=== PATIENT | female | born 1960 | race Caucasian/White ===

== ENCOUNTER 2018-10-15 13:49 | Emergency (ER) | payer OTHER ==
[~2018-10-15 13:49] MED LIST: CALC-852 PO; ESC10 PO; ESOM20CA31 PO; ESTR-68 PO; ESTR0.5T18 PO; FLU220R INH; LAMO200T3 PO; LOR5 PO; NORE1TAB96 PO; VENL100T21 PO
[2018-10-15] MEDS ORDERED: LEVO75TA73 PO (13:57)
[2018-10-15] MEDS ORDERED: VENL150C61 PO (13:57)
--- NOTE | 2018-10-15 13:58 | ER Report ---
History and Physical Time Seen By MD: 13:54 HPI/ROS CHIEF COMPLAINT: Fever, body aches HISTORY OF PRESENT ILLNESS: 58-year-old female patient presents to emergency room with complaint of fever and bodyaches. Patient states that she's not been f eeling well since last night. She states that she started not feeling well out of the blue. Patient states she does have significant headache. She states that she's not had any cough, nausea, vomiting or diarrhea. Patient states the headache is horrible and radius down into the right jaw. She states she is not taking any medication for this. She states she was unable to sleep last night because the pain was so significant. She did go to urgent care today. They felt that she was better served being evaluated here to emergency room. They did give her a shot of Toradol for the pain. Patient states she's feeling significantly better with Toradol. Patient states that she has been riding a lot of horses, and has been exposed. Typically she does wear his belt when she is out. REVIEW OF SYSTEMS: Respiratory: No cough, no dyspnea. Cardiovascular: No chest pain, no palpitations. Gastrointestinal: No vomiting, no abdominal pain. Musculoskeletal: No back pain. Allergies: Coded Allergies: No Known Drug Allergies (Unverified , 10/15/18) Home Meds Active Scripts Ketorolac Tromethamine (KETOROLAC TROMETHAMINE) 10 Mg Tab, 10 MG PO Q6H, #20 TAB Prov:LLUVIA AGEE [facility] 10/15/18 Amoxicillin/Pot Clav 875-125 Mg Tab (AUGMENTIN 875-125 TABLET) 1 Each Tablet, 1 TAB PO Q12H, #14 TAB Prov:LLUVIA AGEE [facility] 10/15/18 Reported Medications Levothyroxine Sodium (LEVOTHYROXINE SODIUM) 75 Mcg Tablet, 75 MCG PO QDAY, TAB 10/15/18 Venlafaxine Hcl (EFFEXOR XR) 150 Mg Cap.er.24h, 150 MG PO QDAY 10/15/18 Estradiol/Norethindrone Acet (ESTRADIOL-NORETH 1-0.5 MG TAB) 1 Each Tablet, 1 EACH PO QDAY 08/04/16 Discontinued Reported Medications Lamotrigine (LAMOTRIGINE) 200 Mg Tab.er.24, 200 MG PO QDAY 08/04/16 Fluticasone Propionate (Flovent Hfa 220 Mcg) 1 Puff Aero, 1 PUFF INH QHS, 0 Refills 1 PUFF 04/18/11 Past Medical/Surgical History Patient has a past medical history of asthma, left hand fracture, hypothyroidi sm, alcohol use, depression. Patient has surgical history of orthopedic surgery for her hand. Patient has a family medical history of cancer. Reviewed Nurses Notes: Yes Hx Smoking: No Smoking Status: Never Smoker Hx Alcohol Use: Yes Constitutional Vital Sign - Last 24 Hours 10/15/18 10/15/18 10/15/18 10/15/18 13:55 14:00 14:30 15:00 Temp 101.3 Pulse 62 61 58 71 Resp 20 B/P (MAP) 144/82 141/85 (103) 138/74 (95) 141/94 (110) Pulse Ox 92 96 94 94 O2 Delivery Room Air 10/15/18 10/15/18 15:30 16:03 Temp 100.0 Pulse 65 B/P (MAP) 128/68 (88) Pulse Ox 93 Physical Exam General Appearance: The patient is alert, has no immediate need for airway protection and no current signs of toxicity. ENT: Patient did have tenderness to frontal and right maxillary sinus. Respiratory: Chest is non tender, lungs are clear to auscultation. Cardiac: regular rate and rhythm Gastrointestinal: Abdomen is soft and non tender, no masses, bowel sounds normal. Musculoskeletal: Neck: Neck is supple and non tender. Extremities have full range of motion and are non tender. Skin: No rashes or lesions. DIFFERENTIAL DIAGNOSIS: After history and physical exam differential diagnosis was considered for fever in adults including but not limited to pneumonia, urinary tract infection, viral syndrome, and influenza. Medical Decision Making Data Points Result Diagram: 10/15/18 1403 10/15/18 1403 Laboratory Hematology Test 10/15/18 14:03 White Blood Count 13.2 k/uL (4.5-11.0) H Red Blood Count 4.33 M/uL (4.17-5.56) Hemoglobin 14.4 g/dL (12.0-16.0) Hematocrit 40.0 % (34.0-47.0) Mean Corpuscular Volume 92.4 fL (80.0-96.0) Mean Corpuscular Hemoglobin 33.1 pg (26.0-33.0) H Mean Corpuscular Hemoglobin Concent 35.9 g/dL (32.0-36.0) Red Cell Distribution Width 12.9 % (11.5-14.5) Platelet Count 245 K/uL (150-450) Mean Platelet Volume 9.1 fL (7.2-11.1) Neutrophils (%) (Auto) 93.1 % (39.4-72.5) H Lymphocytes (%) (Auto) 4.2 % (17.6-49.6) L Monocytes (%) (Auto) 2.5 % (4.1-12.4) L Eosinophils (%) (Auto) 0.0 % (0.4-6.7) L Basophils (%) (Auto) 0.2 % (0.3-1.4) L Nucleated RBC Relative Count (auto) 0.0 /100WBC Neutrophils # (Auto) 12.3 K/uL (2.0-7.4) H Lymphocytes # (Auto) 0.6 K/uL (1.3-3.6) L Monocytes # (Auto) 0.3 K/uL (0.3-1.0) Eosinophils # (Auto) 0.0 K/uL (0.0-0.5) Basophils # (Auto) 0.0 K/uL (0.0-0.1) Nucleated RBC Absolute Count (auto) 0.00 K/uL Erythrocyte Sedimentation Rate 9 mm/HOUR (0-30) Chemistry Test 10/15/18 14:03 Sodium Level 129 mmol/L (137-145) Potassium Level 3.9 mmol/L (3.5-5.0) Chloride Level 98 mmol/L (98-107) Carbon Dioxide Level 21 mmol/L (22-31) Blood Urea Nitrogen 14 mg/dl (7-18) Creatinine 0.70 mg/dl (0.52-1.04) Glomerular Filtration Rate Calc > 60.0 Random Glucose 99 mg/dl (75-110) Calcium Level 9.3 mg/dl (8.4-10.2) Total Bilirubin 0.8 mg/dl (0.2-1.3) Aspartate Amino Transf (AST/SGOT) 37 U/L (0-35) Alanine Aminotransferase (ALT/SGPT) 39 U/L (0-56) Alkaline Phosphatase 80 U/L (0-126) C-Reactive Protein 6.0 mg/dl (<1.0) Total Protein 6.8 g/dl (6.3-8.2) Albumin 4.0 g/dl (3.5-5.0) Serology Test 10/15/18 14:03 10/15/18 14:08 Influenza Virus Type A (PCR) Negative (NEGATIVE) Influenza Virus Type B (PCR) Negative (NEGATIVE) Urinalysis Test 10/15/18 14:17 Urine Color Yellow Urine Clarity Cloudy Urine pH 8.0 pH (4.8-9.5) Urine Specific [place] 1.017 Urine Protein Negative mg/dL (NEGATIVE) Urine Glucose (UA) Negative mg/dL (NEGATIVE) Urine Ketones Negative mg/dL (NEGATIVE) Urine Blood Small (NEGATIVE) Urine Nitrite Negative (NEGATIVE) Urine Bilirubin Negative (NEGATIVE) Urine Urobilinogen Negative mg/dL (0.2-1.9) Urine Leukocyte Esterase Negative (NEGATIVE) Urine RBC 28 /HPF (0-2/HPF) Urine WBC <1 /HPF (0-5/HPF) Urine Squamous Epithelial Cells Many /LPF (</=FEW) Urine Transitional Epithelial Cells Few /LPF (NONE-FEW) Urine Amorphous Crystals Few /HPF Urine Bacteria Negative /HPF (NONE-FEW) Urine Mucus None /HPF (NONE-FEW) EKG/Imaging Imaging EXAMINATION: Chest radiographs 2 views HISTORY: Fever and body aches. COMPARISON: None. FINDINGS: PA and lateral views of the chest are submitted. Lines/tubes: None. Lungs/pleura: No focal consolidation or pleural effusion. Pulmonary vascularity is within normal limits. No evidence of pneumothorax. Heart: Normal heart size. Mediastinum: Mediastinal contours are within normal limits. Bony structures/body wall: Chronic changes in the right clavicle with chronic right AC joint separation. IMPRESSION: No radiographic evidence of acute cardiopulmonary disease. Report Dictated By: Kevin Garvey MD at 10/15/2018 3:19 PM Report E-Signed By: Kevin Garvey MD at 10/15/2018 3:22 PM ED Course/Re-evaluation ED Course Patient was admitted to exam room, history and physical were obtained. Differe ntial diagnoses were considered. Examination lungs are clear, heart is regular, abdomen soft nontender. Patient had no neck tenderness, she is able to move her head without any difficulties. Patient was complaining of pain to the head as well as the right jaw. An IV was started, a chest x-ray, urinalysis, CBC, CMP were done. Lab results were unremarkable to the patient did have an elevated white count 13,000 with left shift. Chest x-ray showed no acute cardiopulmonary processes, urinalysis was negative. I discussed the findings with the patient. I do have some concerns about possible West Nile virus. However this point time she does not have any meningeal signs, and had improvement with Toradol. We will go ahead and discharge this time. We did discuss admission versus discharge home. They did feel that they can go home at this time. They're to return to emergency room if condition worsens. I do worry about possible sinus infection as she is having headache and pressure that goes into the right jaw. I discussed this with patient and her verbalized understanding and agreement. I did draw a West Nile titer, we will: Tach them with results. They're to follow-up with her primary care provider in the next 2-3 days. Decision to Disposition Date: Oct 15, 2018 Decision to Disposition Time: 15:52 Depart Departure Latest Vital Signs Vital Signs Date Time Temp Pulse Resp B/P (MAP) Pulse Ox O2 Delivery O2 Flow Rate FiO2 10/15/18 16:03 100.0 10/15/18 15:30 65 128/68 (88) 93 10/15/18 13:55 20 Room Air Impression: Primary Impression: Sinusitis Additional Impression: Fever Condition: Improved Disposition: HOME OR SELF-CARE Referrals: AGNES OTT DO (PCP) New Scripts Ketorolac Tromethamine (KETOROLAC TROMETHAMINE) 10 Mg Tab 10 MG PO Q6H, #20 TAB Prov: LLUVIA AGEE 10/15/18 Amoxicillin/Pot Clav 875-125 Mg Tab (AUGMENTIN 875-125 TABLET) 1 Each Tablet 1 TAB PO Q12H, #14 TAB Prov: LLUVIA AGEE 10/15/18 Patient Instructions: Sinusitis (ED) Additional Instructions: Increase fluid intake. Get plenty of rest. Take Tylenol as needed for fevers. No Ibuprofen, Aleve, Naproxen, Motrin or Advil while taking the Toradol We have a West Nile Study that we will get the results back in the next couple of days, we will call with those results. Return to the ER if condition worsens. Follow up with Dr. Ott in the next 2-3 days. Problem Qualifiers Primary Impression: Sinusitis Sinusitis location: pansinusitis Chronicity: acute Recurrence: non- recurrent Qualified Codes: J01.40 - Acute pansinusitis, unspecified Additional Impression: Fever Fever type: unspecified Qualified Codes: R50.9 - Fever, unspecified LLUVIA AGEE Oct 15, 2018 13:58
[2018-10-15] MEDS ORDERED: NS(*) 0.9% 1000 ML BAG 1,000 ML IV ONE (14:04)
[2018-10-15] MEDS ORDERED: ACETAMINOPHEN 325 MG TAB PO ONE (14:05)
[2018-10-15 14:22] LABS: PLATELET COUNT, AUTOMATED 245 K/uL (150-450)
[2018-10-15 15:30] VITALS: BP 128/68
--- NOTE | 2018-10-15 15:30 | RADIOLOGY IMAGING REPORT ---
FACILITY: [facility] - [place] PATIENT NAME: Malini Thomas : 1960 MR: [id number] V: [id number] EXAM DATE: ORDERING PHYSICIAN: LLUVIA AGEE TECHNOLOGIST: Location: [facility] [place] Patient: Malini Thomas : 1960 Visit/Account:[id number] Date of Sevice: 10/15/2018 EXAMINATION: Chest radiographs 2 views HISTORY: Fever and body aches. COMPARISON: None. FINDINGS: PA and lateral views of the chest are submitted. Lines/tubes: None. Lungs/pleura: No focal consolidation or pleural effusion. Pulmonary vascularity is within normal abreu its. No evidence of pneumothorax. Heart: Normal heart size. Mediastinum: Mediastinal contours are within normal limits. Bony structures/body wall: Chronic changes in the right clavicle with chronic right AC joint separat ion. IMPRESSION: No radiographic evidence of acute cardiopulmonary disease. Report Dictated By: Kevin Garvey MD at 10/15/2018 3:19 PM Report E-Signed By: Kevin Garvey MD at 10/15/2018 3:22 PM WSN:[id number]
[2018-10-15] MEDS ORDERED: KET10 PO (15:57)
[2018-10-15] MEDS ORDERED: AMOX-559 PO (15:57)
== END 2018-10-15 16:09 | disposition home or self-care (01) ==
LOC: ER 14:10
DX: J01.40 Acute pansinusitis, unspecified (principal); E03.9 Hypothyroidism, unspecified; J45.909 Unspecified asthma, uncomplicated; F32.9 Major depressive disorder, single episode, unspecified; Z79.899 Other long term (current) drug therapy
CPT/HCPCS: 36415; 71046; 81001; 85025; 85651; 86140; 86788; 86789; 87040; 87502; 99283; J7030; 82040; 82247; 82310; 82374; 82435; 82565; 82947; 84075; 84132; 84155; 84295; 84450; 84460; 84520

== ENCOUNTER → 2018-11-08 | Outpatient (CLI) | payer OTHER ==
[~2018-11-08] MED LIST changes: +AMOX-559 PO; +KET10 PO; +LEVO75TA73 PO; +VENL150C61 PO
--- NOTE | 2018-11-09 11:11 | RADIOLOGY IMAGING REPORT ---
FACILITY: [facility] - [place] PATIENT NAME: RADHA VASQUEZ : [id number] MR: [id number] V: [id number] EXAM DATE: [id number] ORDERING PHYSICIAN: AGNES GAR TECHNOLOGIST: Lauren Shook PROCEDURE: BILATERAL DIGITAL SCREENING MAMMOGRAM WITH CAD ASSISTED INTERPRETATION & 3D TOMOSYNTHESIS REASON FOR STUDY: Screening. FAMILY HISTORY OF BREAST CANCER: None. BREAST PROCEDURES/TREATMENTS: None. COMPARISON: 01/30/17, 01/16/17, 04/03/15, 10/08/12. VIEWS OBTAINED: Bilateral 2D & 3D full field CC & MLO projections. BREAST DENSITY: There are scattered areas of fibroglandular density throughout the breasts. MAMMOGRAM FINDINGS: The parenchymal pattern has remained stable allowing for difference in mammographic technique & patient positioning. IMPRESSION: BIRADS 1: Negative. DIAGNOSTIC CATEGORY 1--NEGATIVE. RECOMMENDATIONS: ROUTINE MAMMOGRAM AND CLINICAL EVALUATION. Dictated by: Yasmeen Esquivel M.D. on 11/08/2018 at 9:44 Transcribed by: SUJATHA on 11/09/2018 at 10:50 Approved by: Yasmeen Esquivel M.D. on 11/09/2018 at 11:06 [facility]
== END ==
LOC: MAMO 01:30
PROVIDERS: ATTEND Family Medicine
DX: Z12.31 Encounter for screening mammogram for malignant neoplasm of breast (principal)
CPT/HCPCS: 77063; 77067